=== PATIENT | male | born 1980 | race Caucasian/White ===

== ENCOUNTER 2019-05-23 05:38 | Inpatient (IN) | payer MEDICAID ==
[~2019-05-23] VITALS: Ht 177.8 cm; Wt 127.0 kg
[~2019-05-23 05:38] MED LIST: AMLO10TA80 PO; HYDR-3281 PO; HYDR25TA PO; LOSA100T32 PO; MULT-1116 PO; OMEP20TA15 PO; TRAM50TA3 PO
[2019-05-23] MEDS ORDERED: LACTATED RINGERS 1,000 ML IV SCH (06:15)
[2019-05-23] MEDS ORDERED: LIDOCAINE HCL/EPINEPHRINE 1%-EPI 1:100,000 20 ML VIAL ONE (06:20)
[2019-05-23] MEDS ORDERED: THROMBIN (BOVINE) 5000 UNITS/VIAL TOP ONE (06:21)
[2019-05-23] MEDS ORDERED: BACITRACIN 50,000 UNITS/VIAL ONE (06:21)
[2019-05-23] MEDS ORDERED: FENTANYL CITRATE/PF 50MCG/ML 2ML VIAL ONE (06:56)
[2019-05-23] MEDS ORDERED: ROCURONIUM BROMIDE 10MG/ML VIAL 5ML IV ONE (06:57)
[2019-05-23] MEDS ORDERED: NEOSTIGMINE METHYLSULFATE 1MG/ML 10 ML VIAL ONE (06:57)
[2019-05-23] MEDS ORDERED: MIDAZOLAM HCL 2 MG/2 ML VIAL ONE (06:57)
[2019-05-23] MEDS ORDERED: GLYCOPYRROLATE 0.2 MG/ML 2ML VIAL ONE ×2 (06:57→09:01)
[2019-05-23] MEDS ORDERED: PROPOFOL 200MG/20ML VIAL IV ONE (06:57)
[2019-05-23] MEDS ORDERED: DEXAMETHASONE 4MG/ML 1ML VIAL ONE (06:57)
[2019-05-23] MEDS ORDERED: HYDRALAZINE 20MG/ML VIAL IV PRN (07:30)
[2019-05-23] MEDS ORDERED: HYDROCODONE/ACETAMINOPHEN 5/325MG TABLET PO PRN (07:30)
[2019-05-23] MEDS ORDERED: MORPHINE SULFATE 4 MG/ML CPJ (NOT FOR IM USE) IV PRN (07:30)
[2019-05-23] MEDS ORDERED: HYDROMORPHONE HCL/PF 2MG/ML (OR) ONE ×2 (07:45→09:13)
[2019-05-23] MEDS ORDERED: CEFAZOLIN SODIUM 1000MG/VIAL ONE (07:47)
[2019-05-23] MEDS ORDERED: LIDOCAINE HCL 1% 20ML VIAL (Pyxis) INJ ONE (07:47)
[2019-05-23] MEDS ORDERED: EPHEDRINE SULFATE 50MG/ML VIAL ONE (07:47)
[2019-05-23] MEDS ORDERED: SODIUM CHLORIDE 0.9% 10ML VIAL ONE (07:47)
[2019-05-23] MEDS ORDERED: HYDROMORPHONE HCL/PF 2MG/ML CPJ IV PRN (08:00)
[2019-05-23] MEDS ORDERED: ONDANSETRON HCL 4MG/2ML INJ IV PRN (08:00)
[2019-05-23] MEDS ORDERED: MEPERIDINE HCL/PF 25MG/ML CPJ IV PRN (08:00)
[2019-05-23] MEDS ORDERED: LABETALOL 5MG/ML SYR 20 MG/4 ML SYRINGE IV PRN (08:00)
[2019-05-23] MEDS ORDERED: ONDANSETRON INJ IV PRN (09:45)
[2019-05-23] MEDS ORDERED: HYDROMORPHONE PCA 10MG/50ML IV PRN (09:45)
[2019-05-23] MEDS ORDERED: NALOXONE INJ IV PRN (09:45)
[2019-05-23] MEDS ORDERED: DIPHENHYDRAMINE INJ IV PRN (09:45)
[2019-05-23 12:00] VITALS: BP 103/61
[2019-05-23 12:15] VITALS: BP 103/61
[2019-05-23] MEDS ORDERED: HYDRALAZINE 5 MG in SODIUM CHLORIDE 0.9% 49.5 ML IV PRN (12:30)
[2019-05-23] MEDS: DEXT 5%/LACTATED RINGERS 1,000 ML IV SCH ×2 (12:47→20:49)
[2019-05-23] MEDS: ONDANSETRON HCL 4MG/2ML INJ IV PRN ×2 (12:47→20:45)
[2019-05-23] MEDS: CEFAZOLIN 1000MG PREMIX 50 ML IV SCH ×2 (13:51→20:49)
[2019-05-23] MEDS ORDERED: CEFAZOLIN SODIUM 1000MG/VIAL IV SCH (14:00)
[2019-05-23 16:00] VITALS: BP 111/60
[2019-05-23] MEDS ORDERED: OXYCODONE HCL/ACETAMINOPHEN 5/325MG TABLET PO PRN (18:15)
[2019-05-23 20:00] VITALS: BP 113/64
[2019-05-24] VITALS: BP 107/60
[2019-05-24 04:00] VITALS: BP 99/57
[2019-05-24 06:04] LABS: HEMATOCRIT. 38.4 % (42.0-52.0); HEMOGLOBIN. 13.5 g/dL (14.0-18.0); MEAN CORPUSCULAR HEMOGLOBIN 31.8 pg (28.0-32.0); MEAN CORPUSCULAR VOLUME 90.5 fL (80.0-94.0); MEAN PLATELET VOLUME 9.2 fl (7.4-10.4); PLATELET 264 x1000/uL (130-400); RED BLOOD CELL COUNT 4.24 mill/uL (4.7-6.1); RED CELL DISTRIBUTION WIDTH 13.3 % (11.6-14.6)
[2019-05-24] MEDS: CEFAZOLIN 1000MG PREMIX 50 ML IV SCH ×2 (06:05→14:41)
[2019-05-24] MEDS: ONDANSETRON HCL 4MG/2ML INJ IV PRN (06:06)
[2019-05-24] MEDS: OMEPRAZOLE 20MG CAPSULE EXTENDED RELEASE PO SCH (06:06)
[2019-05-24 06:07] LABS: CHLORIDE 103 mEq/L (98-107)
[2019-05-24] MEDS ORDERED: ACETAMINOPHEN 325MG TABLET PO PRN (07:45)
[2019-05-24 08:00] VITALS: BP 116/61
[2019-05-24] MEDS: MORPHINE SULFATE 2 MG/ML CPJ (NOT FOR IM USE) IV PRN ×2 (08:18→20:58)
[2019-05-24] MEDS: LOSARTAN POTASSIUM 100 MG TABLET PO SCH (08:18)
[2019-05-24] MEDS: AMLODIPINE 10MG TABLET PO SCH (08:19)
[2019-05-24] MEDS: HYDROCHLOROTHIAZIDE 25MG TABLET PO SCH (08:20)
[2019-05-24] MEDS: MORPHINE SULFATE 4 MG/ML CPJ (NOT FOR IM USE) IV PRN ×3 (10:41→17:43)
[2019-05-24 12:00] VITALS: BP 116/63
[2019-05-24 16:00] VITALS: BP 121/55
[2019-05-24 20:00] VITALS: BP 109/58
[2019-05-25] VITALS: BP 107/56
[2019-05-25] MEDS: MORPHINE SULFATE 4 MG/ML CPJ (NOT FOR IM USE) IV PRN ×2 (00:45→07:10)
[2019-05-25 04:00] VITALS: BP 105/57
[2019-05-25] MEDS: OMEPRAZOLE 20MG CAPSULE EXTENDED RELEASE PO SCH (07:10)
[2019-05-25 08:00] VITALS: BP 109/62
[2019-05-25] MEDS: AMLODIPINE 10MG TABLET PO SCH (09:00)
[2019-05-25] MEDS: HYDROCHLOROTHIAZIDE 25MG TABLET PO SCH (09:00)
[2019-05-25] MEDS: LOSARTAN POTASSIUM 100 MG TABLET PO SCH (09:00)
[2019-05-25] MEDS ORDERED: MORPHINE SULFATE 2 MG/ML CPJ (NOT FOR IM USE) IV PRN (11:15)
[2019-05-25] MEDS ORDERED: MORPHINE SULFATE 4 MG/ML CPJ (NOT FOR IM USE) IV PRN (11:15)
[2019-05-25] MEDS ORDERED: POLYETHYLENE GLYCOL 3350 (17GM) 1 DOSE PACK PO SCH (11:15)
[2019-05-25 12:00] VITALS: BP 118/69
[2019-05-25 12:50] VITALS: BP 118/69
[2019-05-26] MEDS ORDERED: FAMOTIDINE 20MG TABLET PO SCH (09:00)
== END 2019-05-25 15:14 | disposition home or self-care (01) | DRG 310 ==
LOC: OR 05:38 → 6EST 05:39
PROVIDERS: ADMIT Neurological Surgery; ATTEND Neurological Surgery
PROC: 4A11X4G Monitoring of Peripheral Nervous Electrical Activity, Intraoperative, External Approach (ICD-10-PCS; principal; 2019-05-23)
PROC: 0SB40ZZ Excision of Lumbosacral Disc, Open Approach (ICD-10-PCS; 2019-05-23)
PROC: 01NR0ZZ Release Sacral Nerve, Open Approach (ICD-10-PCS; 2019-05-23)
PROC: 01NB0ZZ Release Lumbar Nerve, Open Approach (ICD-10-PCS; 2019-05-23)
DX: M51.17 Intervertebral disc disorders with radiculopathy, lumbosacral region (principal); G82.20 Paraplegia, unspecified; I10 Essential (primary) hypertension
CPT/HCPCS: 36415; 72100; 76000; 80048; 85025; 86850; 86900; 88304; 88311; 95863; 95925; 95926; 95928; 95929; 95940; 97116; 97162; 97530; J0690; J1100; J1170; J2250; J2270; J2405; J2704; J2710; J3010; J3490